=== PATIENT | female | born 1990 | race Native Hawaiian/Other Pacific Islander ===

== ENCOUNTER 2016-10-26 15:11 | Observation (INO) | payer OTHER ==
[~2016-10-26] VITALS: Ht 141 cm; Wt 46.3 kg
[2016-10-26 15:15] VITALS: BP 127/91; TEMP 98.1
[2016-10-26 15:41] LABS: PLATELET COUNT 312 K/uL (152-353)
[2016-10-26 15:42] LABS: POTASSIUM 3.9 mmol/L (3.6-5.2); SODIUM 137 mmol/L (136-145)
[2016-10-26] MEDS ORDERED: HYDROXYZ HCL50 MG PO (18:03)
[2016-10-26] MEDS ORDERED: BUPROPN HCL300 MG PO (18:03)
[2016-10-26 20:28] VITALS: BP 96/51; TEMP 98.3
[2016-10-26 22:37] VITALS: BP 96/57; TEMP 98.3; Ht 141 cm; Wt 46.3 kg
[2016-10-27 00:14] VITALS: BP 101/51; TEMP 98.5
[2016-10-27 04:00] VITALS: BP 107/42; TEMP 97.7
[2016-10-27 04:45] LABS: PLATELET COUNT 245 K/uL (152-353)
[2016-10-27 05:02] LABS: POTASSIUM 3.7 mmol/L (3.6-5.2); SODIUM 136 mmol/L (136-145)
--- NOTE | 2016-10-27 05:34 | NUR ---
10/26/16 1830:PT ARRIVED TO ROOM 1107 DURING REPORT. REPORT ON PT GIVEN BY SUZANNE RIOJAS RN.
[2016-10-27 07:50] VITALS: BP 94/41; TEMP 98.5
[2016-10-27 12:00] VITALS: BP 100/48; TEMP 98.5
== END 2016-10-27 14:45 | disposition home or self-care (01) ==
LOC: EDBD 15:11 → ED 15:11 → MED/SURG 16:30
PROVIDERS: Emergency Medicine
DX: N12 Tubulo-interstitial nephritis, not specified as acute or chronic (principal); R10.84 Generalized abdominal pain; R11.2 Nausea with vomiting, unspecified; N20.0 Calculus of kidney
CPT/HCPCS: 36415; 80048; 80053; 81000; 83735; 85027; 96365; 96366; 96367; 96374; 96375; 96376; 99220; 99284; G0378; J0696; J1170; J1885; J2405; J3370